=== PATIENT | female | born 1945 | race Caucasian/White ===

== ENCOUNTER 2019-04-06 20:48 | Inpatient (IN) | payer MEDICARE ==
[2019-04-06] MEDS ORDERED: FUROSEMIDE 10 MG/ML 4 ML VIAL IV STA (20:53)
[2019-04-06 21:33] LABS: Albumin 3.7 g/dL (3.5-5.0); Calcium 9.5 mg/dL (8.4-10.2); Magnesium 2.2 mg/dL (1.6-2.3); Total Bilirubin 0.6 mg/dL (0.2-1.3); Total Protein 6.4 g/dL (6.3-8.2)
[2019-04-06 21:34] LABS: INR 1.5 (<1.2); Partial Thromboplastin Time 29.1 sec (22.0-30.0); Prothrombin Time 15.1 sec (9.0-12.0)
[2019-04-06 21:38] LABS: Anisocytosis Slight; Basophils # (A) 0.4 k/uL (0-0.2); Basophils % (A) 3 %; Eosinophils # (A) 0.1 k/uL (0-0.7); Eosinophils % (A) 1 %; HCT 33.2 % (34.0-46.0); HGB 10.1 gm/dL (11.4-16.0); Hypochromasia Marked; Lymphocytes # (A) 0.2 k/uL (1.0-4.8); Lymphocytes % (A) 2 %; MCH 23.9 pg (25.0-35.0); MCHC 30.3 g/dL (31.0-37.0); MCV 78.9 fL (80.0-100.0); Mean Platelet Volume 7.1; Microcytosis Slight; Monocytes # (A) 0.7 k/uL (0-1.0); Monocytes % (A) 6 %; Neutrophils % (A) 87 %; Platelet Count 268 k/uL (150-450); RBC 4.21 m/uL (3.80-5.40); RDW 18.1 % (11.5-15.5); WBC 11.6 k/uL (3.8-10.6)
[2019-04-06 21:40] LABS: Potassium 4.9 mmol/L (3.5-5.1)
--- NOTE | 2019-04-06 22:01 | XR ---
EXAMINATION TYPE: XR chest 1V DATE OF EXAM: 04/06/2019 HISTORY: Shortness of breath. COMPARISON: 12/30/2018 TECHNIQUE: Single view of the chest is submitted. FINDINGS: Demonstrated are scattered senescent parenchymal change. Cardiomegaly with pulmonary venous congestion and small effusions as well as scattered areas of patch y infiltrate likely reflect congestive failure. Superimposed infiltrates of other etiology are diffic ult to exclude. Correlate clinically and progress studies are recommended. Hilar and mediastinal structures are within normal limits. Degenerative changes are seen of the dorsal spine. IMPRESSION: 1. Cardiomegaly with pulmonary venous congestion and small effusions as well as scattered areas of p atchy infiltrate likely reflect congestive failure. Superimposed infiltrates of other etiology are di fficult to exclude. Correlate clinically and progress studies are recommended.
--- NOTE | 2019-04-06 23:25 | ED ---
SOB HPI - General Chief Complaint: Shortness of Breath Stated Complaint: SOB Time Seen by Provider: 04/06/19 20:48 Source: patient, EMS, RN notes reviewed Mode of arrival: EMS - History of Present Illness Initial Comments: This is a 73-year-old female was brought in by EMS from [place] [facility] with complaints of shortness of breath that apparently started an hour or so prior to arrival however an x-ray was done earlier today and did show evidence of heart failure patient was given a breathing treatment with minimal responsiveness far she was hypoxemic per reports. No fevers chills nausea vomiting sweats no chest pain. Patient does have a history of CHF pneumonia obesity diabetes hypertensive heart disease chronic renal disease versus an atrial fibrillation MD Complaint: shortness of breath - Related Data Home Medications Medication Instructions Recorded Confirmed Albuterol Sulfate [Albuterol 2 puff PO RT-Q6H PRN 04/06/19 04/06/19 Sulfate Hfa] Atorvastatin [Lipitor] 10 mg PO HS 04/06/19 04/06/19 Bisacodyl 10 mg RECTAL DAILY PRN 04/06/19 04/06/19 Budesonide [Pulmicort] 0.5 mg INHALATION RT-BID 04/06/19 04/06/19 Ferrous Sulfate [Iron] 325 mg PO DAILY 04/06/19 04/06/19 Fluticasone Nasal [place] [Flonase 1 spray EA NOSTRIL DAILY 04/06/19 04/06/19 Nasal [place]] Furosemide [Lasix] 80 mg PO BID 04/06/19 04/06/19 Ipratropium-Albuterol Nebulize 3 ml INHALATION RT-Q6H PRN 04/06/19 04/06/19 [Duoneb 0.5 mg-3 mg/3 ml Soln] Isosorbide Mononitrate ER [Imdur] 30 mg PO DAILY 04/06/19 04/06/19 Loratadine 10 mg PO DAILY 04/06/19 04/06/19 Magnesium Hydroxide [Milk of 7,200 mg PO DAILY PRN 04/06/19 04/06/19 Magnesia Concentrate] Melatonin 1 mg PO HS 04/06/19 04/06/19 Metolazone [Zaroxolyn] 2.5 mg PO MOWEFR 04/06/19 04/06/19 Metoprolol Tartrate [Lopressor] 50 mg PO BID 04/06/19 04/06/19 Montelukast Sodium [Singulair] 10 mg PO HS 04/06/19 04/06/19 Na Phos,M-B/Na Phos,Di-Ba [Fleet 133 ml RECTAL ONCE PRN 04/06/19 04/06/19 Adult] Omeprazole 20 mg PO DAILY 04/06/19 04/06/19 Spironolactone 25 mg PO BID 04/06/19 04/06/19 Warfarin Sodium 2.5 mg PO DAILY 04/06/19 04/06/19 amLODIPine [Norvasc] 2.5 mg PO BID 04/06/19 04/06/19 glipiZIDE [Glucotrol] 10 mg PO BID 04/06/19 04/06/19 hydrALAZINE HCL 25 mg PO Q12H 04/06/19 04/06/19 Allergies Allergy/AdvReac Type Severity Reaction Status Date / Time No Known Allergies Allergy Verified 04/06/19 22:14 Review of Systems ROS Statement: Those systems with pertinent positive or pertinent negative responses have been documented in the HPI. ROS Other: All systems not noted in ROS Statement are negative. General Exam - General Exam Comments Initial Comments: This is a well-developed well-nourished awake alert oriented history female who is a respiratory distress with audible wheezing General appearance: alert, anxious, in distress Head exam: Present: atraumatic, normocephalic, normal inspection Eye exam: Present: normal appearance, PERRL, EOMI. Absent: scleral icterus, conjunctival injection, periorbital swelling ENT exam: Present: normal exam, mucous membranes moist Neck exam: Present: normal inspection, full ROM, other (No stridor JVD or bruits). Absent: tenderness, meningismus, lymphadenopathy Respiratory exam: Present: wheezes, decreased breath sounds. Absent: respiratory distress, rales, rhonchi, stridor Cardiovascular Exam: Present: irregular rhythm. Absent: systolic murmur, diastolic murmur, rubs, gallop, clicks GI/Abdominal exam: Present: soft, normal bowel sounds. Absent: distended, tenderness, guarding, rebound, rigid Extremities exam: Present: normal inspection, full ROM, normal capillary refill, pedal edema. Absent: tenderness, joint swelling, calf tenderness Back exam: Present: normal inspection Neurological exam: Present: alert, oriented X3, CN II-XII intact Psychiatric exam: Present: normal affect, anxious Skin exam: Present: warm, dry, intact, normal color. Absent: rash Course Vital Signs 04/06/19 04/06/19 04/06/19 20:50 21:00 21:30 Temperature 97.6 F Pulse Rate 93 99 87 Respiratory 22 18 17 Rate Blood Pressure 112/49 112/49 99/51 O2 Sat by Pulse 89 L 89 L 98 Oximetry 04/06/19 04/06/19 22:00 23:59 Temperature Pulse Rate 73 88 Respiratory 14 22 Rate Blood Pressure 96/43 104/50 O2 Sat by Pulse 98 89 L Oximetry - Reevaluation(s) Reevaluation #1: 04/07/19 00:23 The patient is no code per advanced directives Medical Decision Making - Lab Data Result diagrams: 04/06/19 21:05 04/06/19 21:05 Lab Results 04/06/19 04/06/19 04/06/19 Range/Units 21:05 21:05 21:05 WBC 11.6 H (3.8-10.6) k/uL RBC 4.21 (3.80-5.40) m/uL Hgb 10.1 L (11.4-16.0) gm/dL Hct 33.2 L (34.0-46.0) % MCV 78.9 L (80.0-100.0) fL MCH 23.9 L (25.0-35.0) pg MCHC 30.3 L (31.0-37.0) g/dL RDW 18.1 H (11.5-15.5) % Plt Count 268 (150-450) k/uL Neutrophils % 87 % Lymphocytes % 2 % Monocytes % 6 % Eosinophils % 1 % Basophils % 3 % Neutrophils # 10.0 H (1.3-7.7) k/uL Lymphocytes # 0.2 L (1.0-4.8) k/uL Monocytes # 0.7 (0-1.0) k/uL Eosinophils # 0.1 (0-0.7) k/uL Basophils # 0.4 H (0-0.2) k/uL Hypochromasia Marked Anisocytosis Slight Microcytosis Slight PT (9.0-12.0) sec INR (<1.2) APTT (22.0-30.0) sec Sodium 134 L (137-145) mmol/L Potassium 4.9 (3.5-5.1) mmol/L Chloride 95 L (98-107) mmol/L Carbon Dioxide 32 H (22-30) mmol/L Anion Gap 7 mmol/L BUN 43 H (7-17) mg/dL Creatinine 1.34 H (0.52-1.04) mg/dL Est GFR (CKD-EPI)AfAm 45 (>60 ml/min/1.73 sqM) Est GFR (CKD-EPI)NonAf 39 (>60 ml/min/1.73 sqM) Glucose 199 H (74-99) mg/dL Calcium 9.5 (8.4-10.2) mg/dL Magnesium 2.2 (1.6-2.3) mg/dL Total Bilirubin 0.6 (0.2-1.3) mg/dL AST 36 (14-36) U/L ALT 30 (9-52) U/L Alkaline Phosphatase 81 (38-126) U/L Creatine Kinase 28 L (30-135) U/L Troponin I (0.000-0.034) ng/mL NT-Pro-B Natriuret Pep 2510 pg/mL Total Protein 6.4 (6.3-8.2) g/dL Albumin 3.7 (3.5-5.0) g/dL 04/06/19 04/06/19 Range/Units 21:05 21:05 WBC (3.8-10.6) k/uL RBC (3.80-5.40) m/uL Hgb (11.4-16.0) gm/dL Hct (34.0-46.0) % MCV (80.0-100.0) fL MCH (25.0-35.0) pg MCHC (31.0-37.0) g/dL RDW (11.5-15.5) % Plt Count (150-450) k/uL Neutrophils % % Lymphocytes % % Monocytes % % Eosinophils % % Basophils % % Neutrophils # (1.3-7.7) k/uL Lymphocytes # (1.0-4.8) k/uL Monocytes # (0-1.0) k/uL Eosinophils # (0-0.7) k/uL Basophils # (0-0.2) k/uL Hypochromasia Anisocytosis Microcytosis PT 15.1 H (9.0-12.0) sec INR 1.5 H (<1.2) APTT 29.1 (22.0-30.0) sec Sodium (137-145) mmol/L Potassium (3.5-5.1) mmol/L Chloride (98-107) mmol/L Carbon Dioxide (22-30) mmol/L Anion Gap mmol/L BUN (7-17) mg/dL Creatinine (0.52-1.04) mg/dL Est GFR (CKD-EPI)AfAm (>60 ml/min/1.73 sqM) Est GFR (CKD-EPI)NonAf (>60 ml/min/1.73 sqM) Glucose (74-99) mg/dL Calcium (8.4-10.2) mg/dL Magnesium (1.6-2.3) mg/dL Total Bilirubin (0.2-1.3) mg/dL AST (14-36) U/L ALT (9-52) U/L Alkaline Phosphatase (38-126) U/L Creatine Kinase (30-135) U/L Troponin I 0.023 (0.000-0.034) ng/mL NT-Pro-B Natriuret Pep pg/mL Total Protein (6.3-8.2) g/dL Albumin (3.5-5.0) g/dL - EKG Data -: EKG Interpreted by Me (Atrial fibrillation with a variable AV block occasional PVCs rate was 90 QR) - Radiology Data Radiology results: report reviewed (I did review the imaging and report evidence of pulmonary edema/CHF), image reviewed Critical Care Time Critical Care Time: Yes Critical Care Time: 42 minutes of critical care time which includes initial presentation with history physical labs x-rays discussed with paramedics upon arrival. Review of old charting was available reevaluation the patient response to therapy discussion with the main physician admission orders and documentation of the above. Disposition Clinical Impression: Systolic congestive heart failure, Pulmonary edema, Hypoxemia, Renal insufficiency syndrome Disposition: ADMITTED IP TO THIS [facility] Condition: Serious Referrals: Miguel Angel Mcgrath MD [Primary Care Provider] - 1-2 days
[2019-04-07] MEDS ORDERED: BISACODYL 10 MG SUPP RECTAL PRN (00:26)
[2019-04-07] MEDS ORDERED: NA PHOS,M-B/NA PHOS,DI-BA 133 ML ENEMA RECTAL PRN (00:26)
[2019-04-07] MEDS ORDERED: MAGNESIUM HYDROXIDE 2,400 MG/10 ML CUP PO PRN (00:26)
--- NOTE | 2019-04-07 00:29 | ED ---
Medical Decision Making - Lab Data Result diagrams: 04/06/19 21:05 04/06/19 21:05 Lab Results 04/06/19 04/06/19 04/06/19 Range/Units 21:05 21:05 21:05 WBC 11.6 H (3.8-10.6) k/uL RBC 4.21 (3.80-5.40) m/uL Hgb 10.1 L (11.4-16.0) gm/dL Hct 33.2 L (34.0-46.0) % MCV 78.9 L (80.0-100.0) fL MCH 23.9 L (25.0-35.0) pg MCHC 30.3 L (31.0-37.0) g/dL RDW 18.1 H (11.5-15.5) % Plt Count 268 (150-450) k/uL Neutrophils % 87 % Lymphocytes % 2 % Monocytes % 6 % Eosinophils % 1 % Basophils % 3 % Neutrophils # 10.0 H (1.3-7.7) k/uL Lymphocytes # 0.2 L (1.0-4.8) k/uL Monocytes # 0.7 (0-1.0) k/uL Eosinophils # 0.1 (0-0.7) k/uL Basophils # 0.4 H (0-0.2) k/uL Hypochromasia Marked Anisocytosis Slight Microcytosis Slight PT (9.0-12.0) sec INR (<1.2) APTT (22.0-30.0) sec Sodium 134 L (137-145) mmol/L Potassium 4.9 (3.5-5.1) mmol/L Chloride 95 L (98-107) mmol/L Carbon Dioxide 32 H (22-30) mmol/L Anion Gap 7 mmol/L BUN 43 H (7-17) mg/dL Creatinine 1.34 H (0.52-1.04) mg/dL Est GFR (CKD-EPI)AfAm 45 (>60 ml/min/1.73 sqM) Est GFR (CKD-EPI)NonAf 39 (>60 ml/min/1.73 sqM) Glucose 199 H (74-99) mg/dL Calcium 9.5 (8.4-10.2) mg/dL Magnesium 2.2 (1.6-2.3) mg/dL Total Bilirubin 0.6 (0.2-1.3) mg/dL AST 36 (14-36) U/L ALT 30 (9-52) U/L Alkaline Phosphatase 81 (38-126) U/L Creatine Kinase 28 L (30-135) U/L Troponin I (0.000-0.034) ng/mL NT-Pro-B Natriuret Pep 2510 pg/mL Total Protein 6.4 (6.3-8.2) g/dL Albumin 3.7 (3.5-5.0) g/dL 04/06/19 04/06/19 Range/Units 21:05 21:05 WBC (3.8-10.6) k/uL RBC (3.80-5.40) m/uL Hgb (11.4-16.0) gm/dL Hct (34.0-46.0) % MCV (80.0-100.0) fL MCH (25.0-35.0) pg MCHC (31.0-37.0) g/dL RDW (11.5-15.5) % Plt Count (150-450) k/uL Neutrophils % % Lymphocytes % % Monocytes % % Eosinophils % % Basophils % % Neutrophils # (1.3-7.7) k/uL Lymphocytes # (1.0-4.8) k/uL Monocytes # (0-1.0) k/uL Eosinophils # (0-0.7) k/uL Basophils # (0-0.2) k/uL Hypochromasia Anisocytosis Microcytosis PT 15.1 H (9.0-12.0) sec INR 1.5 H (<1.2) APTT 29.1 (22.0-30.0) sec Sodium (137-145) mmol/L Potassium (3.5-5.1) mmol/L Chloride (98-107) mmol/L Carbon Dioxide (22-30) mmol/L Anion Gap mmol/L BUN (7-17) mg/dL Creatinine (0.52-1.04) mg/dL Est GFR (CKD-EPI)AfAm (>60 ml/min/1.73 sqM) Est GFR (CKD-EPI)NonAf (>60 ml/min/1.73 sqM) Glucose (74-99) mg/dL Calcium (8.4-10.2) mg/dL Magnesium (1.6-2.3) mg/dL Total Bilirubin (0.2-1.3) mg/dL AST (14-36) U/L ALT (9-52) U/L Alkaline Phosphatase (38-126) U/L Creatine Kinase (30-135) U/L Troponin I 0.023 (0.000-0.034) ng/mL NT-Pro-B Natriuret Pep pg/mL Total Protein (6.3-8.2) g/dL Albumin (3.5-5.0) g/dL Disposition Clinical Impression: Systolic congestive heart failure, Pulmonary edema, Hypoxemia, Renal insuf ficiency syndrome, Chronic atrial fibrillation Disposition: ADMITTED IP TO THIS HOSP Condition: Serious Referrals: Miguel Angel Mcgrath MD [Primary Care Provider] - 1-2 days
[2019-04-07] MEDS: hydrALAZINE HCL 25 MG TAB PO SCH ×3 (02:10→23:57)
[2019-04-07 06:20] LABS: Glucose,Whole Blood 191 mg/dL (75-99)
[2019-04-07] MEDS: PANTOPRAZOLE 40 MG TABLET PO SCH (06:23)
[2019-04-07] MEDS: INSULIN ASPART (NovoLOG) 100 UNIT/ML VIAL SQ SCH ×4 (06:24→21:42)
[2019-04-07] MEDS ORDERED: FUROSEMIDE 40 MG TAB PO SCH ×2 (08:00→21:00)
[2019-04-07] MEDS: LORATADINE 10 MG TAB PO SCH (08:04)
[2019-04-07] MEDS: FLUTICASONE 50MCG/SPRAY NASAL 16GM EA NOSTRIL SCH (08:04)
[2019-04-07] MEDS: SPIRONOLACTONE 25 MG TAB PO SCH ×2 (08:04→22:44)
[2019-04-07] MEDS: ISOSORBIDE MONONITRATE ER 30 MG TAB.ER.24H PO SCH (08:04)
[2019-04-07] MEDS: METOPROLOL TARTRATE 50 MG TAB PO SCH ×2 (08:04→22:44)
[2019-04-07] MEDS: FERROUS SULFATE 325 MG TAB PO SCH (08:05)
[2019-04-07] MEDS: glipiZIDE 10 MG TAB PO SCH ×2 (08:05→22:44)
[2019-04-07] MEDS: BUDESONIDE 0.5 MG/2 ML NEBU INHALATION SCH ×2 (08:19→19:53)
[2019-04-07] MEDS ORDERED: amLODIPine 5 MG TAB PO SCH (09:00)
[2019-04-07] MEDS ORDERED: FUROSEMIDE 20 MG TAB PO SCH (09:00)
[2019-04-07 11:36] VITALS: BMI 43.7
--- NOTE | 2019-04-07 11:42 | P.CRDCN ---
History of Present Illness Consult date: 04/07/19 Requesting physician: Yandel Adams Consult reason: congestive heart failure, shortness of breath Chief complaint: Shortness of breath History of present illness: This is a 73-year-old female who follows regularly with Dr. Stu Leonard in the office. She has a history of chronic atrial fibrillation, sick sinus syndrome with underlying permanent pacemaker, sleep apnea, who has in the past refused to wear CPAP, she has pulmonary hypertension history diastolic congestive heart failure, diabetes, hypertension, hyperlipidemia, was recently at [facility], treated there for heart failure according to the daughter, was released to [facility] on Saturday. Her breathing continued to worsen significantly and the patient developed profound worsening of her peripheral edema and for this reason came here to [facility] for evaluation and treatment. Chest x-ray on presentation here showed cardiomegaly with pulmonary venous congestion and small effusions as well as scattered areas of patchy infiltrate likely reflecting congestive heart failure. Superimposed infiltrates of other etiology difficult to exclude. EKG showed atrial fibrillation with occasional PVC. Blood pressure 150/60 with a heart rate in the 80s, 94% on a nonrebreather. White blood cell count 11.6, hemoglobin 10.1, platelet count 268. Sodium 134, potassium 4.9, BUN 43, creatinine 1.3, magnesium 2.2, troponin 0.023, 0.026, 0.025. BNP 2510. Past Medical History Past Medical History: Atrial Fibrillation, Asthma, Heart Failure, COPD, Diabetes Mellitus, Hyperlipidemia, Hypertension History of Any Multi-Drug Resistant Organisms: None Reported Past Surgical History: Pacemaker Past Anesthesia/Blood Transfusion Reactions: No Reported Reaction Type of Cardiac Device: Permanent Pacemaker Device Placement Date:: 2015 Past Psychological History: No Psychological Hx Reported Smoking Status: Never smoker Medications and Allergies Home Medications Medication Instructions Recorded Confirmed Type Albuterol Sulfate [Albuterol 2 puff PO RT-Q6H PRN 04/06/19 04/06/19 History Sulfate Hfa] Atorvastatin [Lipitor] 10 mg PO HS 04/06/19 04/06/19 History Bisacodyl 10 mg RECTAL DAILY PRN 04/06/19 04/06/19 History Budesonide [Pulmicort] 0.5 mg INHALATION RT-BID 04/06/19 04/06/19 History Ferrous Sulfate [Iron] 325 mg PO DAILY 04/06/19 04/06/19 History Fluticasone Nasal [place] [Flonase 1 spray EA NOSTRIL DAILY 04/06/19 04/06/19 History Nasal [place]] Furosemide [Lasix] 80 mg PO BID 04/06/19 04/06/19 History Ipratropium-Albuterol Nebulize 3 ml INHALATION RT-Q6H PRN 04/06/19 04/06/19 History [Duoneb 0.5 mg-3 mg/3 ml Soln] Isosorbide Mononitrate ER [Imdur] 30 mg PO DAILY 04/06/19 04/06/19 History Loratadine 10 mg PO DAILY 04/06/19 04/06/19 History Magnesium Hydroxide [Milk of 7,200 mg PO DAILY PRN 04/06/19 04/06/19 History Magnesia Concentrate] Melatonin 1 mg PO HS 04/06/19 04/06/19 History Metolazone [Zaroxolyn] 2.5 mg PO MOWEFR 04/06/19 04/06/19 History Metoprolol Tartrate [Lopressor] 50 mg PO BID 04/06/19 04/06/19 History Montelukast Sodium [Singulair] 10 mg PO HS 04/06/19 04/06/19 History Na Phos,M-B/Na Phos,Di-Ba [Fleet 133 ml RECTAL ONCE PRN 04/06/19 04/06/19 History Adult] Omeprazole 20 mg PO DAILY 04/06/19 04/06/19 History Spironolactone 25 mg PO BID 04/06/19 04/06/19 History Warfarin Sodium 2.5 mg PO DAILY 04/06/19 04/06/19 History amLODIPine [Norvasc] 2.5 mg PO BID 04/06/19 04/06/19 History glipiZIDE [Glucotrol] 10 mg PO BID 04/06/19 04/06/19 History hydrALAZINE HCL 25 mg PO Q12H 04/06/19 04/06/19 History Allergies Allergy/AdvReac Type Severity Reaction Status Date / Time No Known Allergies Allergy Verified 04/06/19 22:14 Physical Exam Vitals: Vital Signs Temp Pulse Pulse Resp BP BP Pulse Ox 04/07/19 08:29 92 04/07/19 08:21 88 96 04/07/19 07:48 95 F L 92 18 151/66 94 L 04/07/19 03:46 80 18 04/07/19 03:45 97.9 F 80 18 137/62 94 L 04/07/19 01:22 95 04/07/19 01:15 94 20 04/07/19 00:45 20 95 04/07/19 00:42 86 22 104/57 91 L 04/07/19 00:39 98.1 F 94 20 125/79 86 L 04/06/19 23:59 88 22 104/50 89 L 04/06/19 22:00 73 14 96/43 98 04/06/19 21:30 87 17 99/51 98 04/06/19 21:00 99 18 112/49 89 L 04/06/19 20:50 97.6 F 93 22 112/49 89 L Intake and Output 04/06/19 04/07/19 04/07/19 22:59 06:59 14:59 Intake Total 360 Output Total 200 1 Balance -200 359 Intake: Oral 360 Output: Urine 200 Stool 1 Other: Voiding Method Bedpan Incontinent # Voids 1 1 Weight 98.883 kg 101.5 kg PHYSICAL EXAMINATION: GENERAL: 73-year-old female in no acute distress at the time of my examination HEENT: Head is atraumatic, normocephalic. Pupils equal, round. Sclera anicteric. Conjunctiva are clear. Mucous membranes of the mouth are moist. Neck is supple. Unable to assess for elevated jugular venous pressure. No ca rotid bruit is heard. HEART EXAMINATION: Heart S1 and S2 irregularly irregular a systolic murmur is heard CHEST EXAMINATION: Lungs reveal rales bilaterally to the bases with diminished air in the bases ABDOMEN: Soft, obese, nontender. Bowel sounds are heard. No organomegaly noted. EXTREMITIES: 2+ peripheral pulses with 2-3+ evidence of peripheral edema and no calf tenderness noted. NEUROLOGIC [patient is sleepy, nonrebreather mask in place Results 04/06/19 21:05 04/06/19 21:05 Cardiac Enzymes 04/06/19 04/06/19 04/07/19 Range/Units 21:05 21:05 03:15 AST 36 (14-36) U/L Troponin I 0.023 0.026 (0.000-0.034) ng/mL 04/07/19 Range/Units 09:13 AST (14-36) U/L Troponin I 0.025 (0.000-0.034) ng/mL Coagulation 04/06/19 Range/Units 21:05 PT 15.1 H (9.0-12.0) sec APTT 29.1 (22.0-30.0) sec CBC 04/06/19 Range/Units 21:05 WBC 11.6 H (3.8-10.6) k/uL RBC 4.21 (3.80-5.40) m/uL Hgb 10.1 L (11.4-16.0) gm/dL Hct 33.2 L (34.0-46.0) % Plt Count 268 (150-450) k/uL Comprehensive Metabolic Panel 04/06/19 Range/Units 21:05 Sodium 134 L (137-145) mmol/L Potassium 4.9 (3.5-5.1) mmol/L Chloride 95 L (98-107) mmol/L Carbon Dioxide 32 H (22-30) mmol/L BUN 43 H (7-17) mg/dL Creatinine 1.34 H (0.52-1.04) mg/dL Glucose 199 H (74-99) mg/dL Calcium 9.5 (8.4-10.2) mg/dL AST 36 (14-36) U/L ALT 30 (9-52) U/L Alkaline Phosphatase 81 (38-126) U/L Total Protein 6.4 (6.3-8.2) g/dL Albumin 3.7 (3.5-5.0) g/dL Current Medications Generic Name Dose Route Start Last Admin Trade Name Freq PRN Reason Stop Dose Admin Amlodipine Besylate 2.5 mg 04/07/19 09:00 04/07/19 08:04 Norvasc PO 2.5 mg BID MING Administration Atorvastatin Calcium 10 mg 04/07/19 21:00 Lipitor PO HS MING Bisacodyl 10 mg 04/07/19 00:26 Dulcolax RECTAL DAILY PRN Constipation Budesonide 0.5 mg 04/07/19 08:00 04/07/19 08:19 Pulmicort INHALATION 0.5 mg RT-BID MING Administration Ferrous Sulfate 325 mg 04/07/19 09:00 04/07/19 08:05 Feosol PO 325 mg DAILY MNIG Administration Fluticasone Propionate 1 spray 04/07/19 09:00 04/07/19 08:04 Flonase Nasal [place] EA NOSTRIL 1 spray DAILY MING Administration Furosemide 40 mg 04/07/19 08:00 04/07/19 10:47 Lasix PO 40 mg Q8HR MING Administration Glipizide 10 mg 04/07/19 09:00 04/07/19 08:05 Glucotrol PO 10 mg BID [facility] Administration Hydralazine HCl 25 mg 04/07/19 00:30 04/07/19 02:10 Apresoline PO Not Given Q12H [facility] Insulin Aspart 0 unit 04/07/19 07:30 04/07/19 06:24 Novolog SQ 2 unit ACHS [facility] Administration Protocol Isosorbide Mononitrate 30 mg 04/07/19 09:00 04/07/19 08:04 Imdur PO 30 mg DAILY MING Administration Loratadine 10 mg 04/07/19 09:00 04/07/19 08:04 Claritin PO 10 mg DAILY [facility] Administration Magnesium Hydroxide 7,200 mg 04/07/19 00:26 Milk Of Magnesia PO DAILY PRN Constipation Melatonin 1 mg 04/07/19 21:00 Melatonin PO HS [facility] Metolazone 2.5 mg 04/08/19 09:00 Zaroxolyn PO MoWeFr@0900 [facility] Metoprolol Tartrate 50 mg 04/07/19 09:00 04/07/19 08:04 Lopressor PO 50 mg BID [facility] Administration Montelukast Sodium 10 mg 04/07/19 21:00 Singulair PO HS [facility] Pantoprazole Sodium 40 mg 04/07/19 07:30 04/07/19 06:23 Protonix PO 40 mg DAILY@0730 [facility] Administration Sodium Biphosphate/Sodium Phosphate 133 ml 04/07/19 00:26 Fleet Adult RECTAL 04/21/19 00:27 ONCE PRN Constipation Spironolactone 25 mg 04/07/19 09:00 04/07/19 08:04 Aldactone PO 25 mg BID [facility] Administration Warfarin Sodium 2.5 mg 04/07/19 18:00 Coumadin PO DAILY@1800 [facility] Intake and Output 04/06/19 04/07/19 04/07/19 22:59 06:59 14:59 Intake Total 360 Output Total 200 1 Balance -200 359 Intake: Oral 360 Output: Urine 200 Stool 1 Other: Voiding Method Bedpan Incontinent # Voids 1 1 Weight 98.883 kg 101.5 kg 04/06/19 21:05 04/06/19 21:05 EKG Interpretations (text) EKG shows atrial fibrillation with occasional PVC Assessment and Plan Plan: Assessment and plan #1 diastolic congestive heart failure acute on chronic #2 Sick sinus syndrome with prior pacemaker implantation #3 hypertension #4 hyperlipidemia #5 obesity #6 sleep apnea #7 pulmonary hypertension Plan The patient was released from [facility] on Saturday we will attempt to get an echo from there, as well as other records, if there was not one performed we will obtain an echo. We will also start the patient on an IV Lasix drip. We will discontinue the Norvasc and discontinue the hydralazine and nitrates. If the patient's renal function improves we will initiate an MIKHAIL inhibitor from tomorrow. Continue metoprolol, Lipitor, Aldactone. Monitor intake and output along with daily weights and daily lytes BUN and creatinine. DNP note has been reviewed, I agree with a documented findings and plan of care. Patient was seen and examined.
[2019-04-07 12:10] LABS: Glucose,Whole Blood 218 mg/dL (75-99)
[2019-04-07] MEDS: FUROSEMIDE 100 MG in SODIUM CHLORIDE 0.9% 90 ML IV SCH ×2 (13:27→20:21)
[2019-04-07 17:07] LABS: Glucose,Whole Blood 190 mg/dL (75-99)
[2019-04-07] MEDS: WARFARIN 2.5 MG TAB PO SCH (17:29)
[2019-04-07 17:50] LABS: Hemoglobin A1C 7.9 % (4.0-6.0)
[2019-04-07 20:21] LABS: Glucose,Whole Blood 215 mg/dL (75-99)
--- NOTE | 2019-04-07 21:16 | P.HPIM ---
History of Present Illness H&P Date: 04/07/19 Chief Complaint: Shortness of breath History of presenting complaint: This is a pleasant 73-year-old patient of visiting physician Dr. Mcgrath. Patient is currently in rehab at [facility]. Chronic stable medical conditions include hypertension, hyperlipidemia, diabetes, COPD, atrial fibrillation. Patient is of a permanent pacemaker. Patient's been short of breath for quite a while. For last 2 weeks becoming increasingly short of breath. Decreased appetite and increasing edema. Results of the ER. No fever no chills. Tired rundown. Patient is found to be in congestive heart failure is currently on a Lasix drip. Also on a BiPAP. Patient is niece of the bedside to give history. Patient normally uses a wheelchair to baseline. Patient's nephew Christian is the power of assistant attorney general. Patient was released from [facility] on Saturday. To the [facility] Review of systems: GEN.: Tired decreased appetite EYES: None HEENT: None NECK: None RESPIRATORY: As above CARDIOVASCULAR: [As above GASTROINTESTINAL: None GENITOURINARY: None MUSCULOSKELETAL: Joint pains LYMPHATICS: None HEMATOLOGICAL: None PSYCHIATRY: None NEUROLOGICAL: None Past medical history: Atypical fibrillation, heart failure, COPD, diabetes mellitus type 2, hyperlipidemia, hypertension, pacemaker Social history: No smoking. No alcohol. Currently at [facility]. Patient's nephew Christian is the [facility] er of assistant attorney general Family history: Reviewed, noncontributory to presentation Physical examination: VITAL SIGNS: 97.6, 93, 22, 11 2/49, 89% on 6 L-on presentation GENERAL: BMI 43.7, propped up in bed, short of breath BiPAP in place. EYES: Pupils equal. Conjunctiva normal. HEENT: External appearance of nose and ears normal, oral cavity grossly normal. NECK: JVD unable to assess; masses not palpable. HEART: Heart sounds are regular; edema present. LUNGS: Respiratory rate increased, diminished breath sounds. ABDOMEN: Soft, nontender, liver spleen not palpable, no masses palpable. PSYCH: Alert and oriented x3; mood and affect normal. NEUROLOGICAL: Cranial nerves grossly intact; no facial asymmetry, power and sensation grossly intact. LYMPHATICS: No lymph nodes palpable in the axilla and neck INVESTIGATIONS, reviewed in the clinical context: White count 11.6 hemoglobin 10.1 pressure 4.9 bun 43 creatinine 1.34 Troponin I 0.0-3, 0.026, 0.0-5 ProBNP 2510 EKG tracing personally reviewed by me--atrial flutter with variable AV block Chest x-ray film personally reviewed by me-cardiomegaly, with venous prominence and also infiltrates Assessment: -Acute on chronic congestive heart failure exacerbation EF not known -Possible pneumonia -Morbid obesity BMI 43.7 -Acute hypoxic respiratory failure from underlying pneumonia/CHF -Persistent atrial flutter with variable ventricular rate, on Coumadin -Chronic medical debility patient is wheelchair bound -Diabetes mellitus type 2 on oral hypoglycemic -Hyperlipidemia -Essential hypertension -Anemia possibly secondary to chronic kidney disease -Chronic kidney disease stage III possibly from diabetic nephropathy and hypertensive nephrosclerosis -Coumadin monitoring Plan: Patient put on oxygen supplementation. On Lasix drip. Strict I's and O's will be followed. Also on a BiPAP. We'll also start the patient on IV cefepime. Home medications resumed. 2-D echo results are being obtained from [facility]. Care was discussed with the patient and his of the bedside.- Past Medical History Past Medical History: Atrial Fibrillation, Asthma, Heart Failure, COPD, Diabetes Mellitus, Hyperlipidemia, Hypertension History of Any Multi-Drug Resistant Organisms: None Reported Past Surgical History: Pacemaker Past Anesthesia/Blood Transfusion Reactions: No Reported Reaction Type of Cardiac Device: Permanent Pacemaker Device Placement Date:: 2015 Past Psychological History: No Psychological Hx Reported Smoking Status: Never smoker Medications and Allergies Home Medications Medication Instructions Recorded Confirmed Type Albuterol Sulfate [Albuterol 2 puff PO RT-Q6H PRN 04/06/19 04/06/19 History Sulfate Hfa] Atorvastatin [Lipitor] 10 mg PO HS 04/06/19 04/06/19 History Bisacodyl 10 mg RECTAL DAILY PRN 04/06/19 04/06/19 History Budesonide [Pulmicort] 0.5 mg INHALATION RT-BID 04/06/19 04/06/19 History Ferrous Sulfate [Iron] 325 mg PO DAILY 04/06/19 04/06/19 History Fluticasone Nasal [place] [Flonase 1 spray EA NOSTRIL DAILY 04/06/19 04/06/19 History Nasal [place]] Furosemide [Lasix] 80 mg PO BID 04/06/19 04/06/19 History Ipratropium-Albuterol Nebulize 3 ml INHALATION RT-Q6H PRN 04/06/19 04/06/19 History [Duoneb 0.5 mg-3 mg/3 ml Soln] Isosorbide Mononitrate ER [Imdur] 30 mg PO DAILY 04/06/19 04/06/19 History Loratadine 10 mg PO DAILY 04/06/19 04/06/19 History Magnesium Hydroxide [Milk of 7,200 mg PO DAILY PRN 04/06/19 04/06/19 History Magnesia Concentrate] Melatonin 1 mg PO HS 04/06/19 04/06/19 History Metolazone [Zaroxolyn] 2.5 mg PO MOWEFR 04/06/19 04/06/19 History Metoprolol Tartrate [Lopressor] 50 mg PO BID 04/06/19 04/06/19 History Montelukast Sodium [Singulair] 10 mg PO HS 04/06/19 04/06/19 History Na Phos,M-B/Na Phos,Di-Ba [Fleet 133 ml RECTAL ONCE PRN 04/06/19 04/06/19 History Adult] Omeprazole 20 mg PO DAILY 04/06/19 04/06/19 History Spironolactone 25 mg PO BID 04/06/19 04/06/19 History Warfarin Sodium 2.5 mg PO DAILY 04/06/19 04/06/19 History amLODIPine [Norvasc] 2.5 mg PO BID 04/06/19 04/06/19 History glipiZIDE [Glucotrol] 10 mg PO BID 04/06/19 04/06/19 History hydrALAZINE HCL 25 mg PO Q12H 04/06/19 04/06/19 History Allergies Allergy/AdvReac Type Severity Reaction Status Date / Time No Known Allergies Allergy Verified 04/06/19 22:14 Physical Exam Vitals: Vital Signs Temp Pulse Pulse Resp BP BP Pulse Ox 04/07/19 12:00 97.5 F L 75 18 117/76 92 L 04/07/19 08:29 92 04/07/19 08:21 88 96 04/07/19 07:48 95 F L 92 18 151/66 94 L 04/07/19 03:46 80 18 04/07/19 03:45 97.9 F 80 18 137/62 94 L 04/07/19 01:22 95 04/07/19 01:15 94 20 04/07/19 00:45 20 95 04/07/19 00:42 86 22 104/57 91 L 04/07/19 00:39 98.1 F 94 20 125/79 86 L 04/06/19 23:59 88 22 104/50 89 L 04/06/19 22:00 73 14 96/43 98 04/06/19 21:30 87 17 99/51 98 04/06/19 21:00 99 18 112/49 89 L 04/06/19 20:50 97.6 F 93 22 112/49 89 L Intake and Output 04/06/19 04/07/19 04/07/19 22:59 06:59 14:59 Intake Total 360 Output Total 200 1 Balance -200 359 Intake: Oral 360 Output: Urine 200 Stool 1 Other: Voiding Method Bedpan Incontinent # Voids 1 1 Weight 98.883 kg 101.5 kg 101.5 kg Results CBC & Chem 7: 04/06/19 21:05 04/06/19 21:05 Labs: Abnormal Lab Results - Last 24 Hours (Table) 04/06/19 04/06/19 04/06/19 Range/Units 21:05 21:05 21:05 WBC 11.6 H (3.8-10.6) k/uL Hgb 10.1 L (11.4-16.0) gm/dL Hct 33.2 L (34.0-46.0) % MCV 78.9 L (80.0-100.0) fL MCH 23.9 L (25.0-35.0) pg MCHC 30.3 L (31.0-37.0) g/dL RDW 18.1 H (11.5-15.5) % Neutrophils # 10.0 H (1.3-7.7) k/uL Lymphocytes # 0.2 L (1.0-4.8) k/uL Basophils # 0.4 H (0-0.2) k/uL PT 15.1 H (9.0-12.0) sec INR 1.5 H (<1.2) Sodium 134 L (137-145) mmol/L Chloride 95 L (98-107) mmol/L Carbon Dioxide 32 H (22-30) mmol/L BUN 43 H (7-17) mg/dL Creatinine 1.34 H (0.52-1.04) mg/dL Glucose 199 H (74-99) mg/dL POC Glucose (mg/dL) (75-99) mg/dL Creatine Kinase 28 L (30-135) U/L 04/07/19 04/07/19 Range/Units 06:19 11:55 WBC (3.8-10.6) k/uL Hgb (11.4-16.0) gm/dL Hct (34.0-46.0) % MCV (80.0-100.0) fL MCH (25.0-35.0) pg MCHC (31.0-37.0) g/dL RDW (11.5-15.5) % Neutrophils # (1.3-7.7) k/uL Lymphocytes # (1.0-4.8) k/uL Basophils # (0-0.2) k/uL PT (9.0-12.0) sec INR (<1.2) Sodium (137-145) mmol/L Chloride (98-107) mmol/L Carbon Dioxide (22-30) mmol/L BUN (7-17) mg/dL Creatinine (0.52-1.04) mg/dL Glucose (74-99) mg/dL POC Glucose (mg/dL) 191 H 218 H (75-99) mg/dL Creatine Kinase (30-135) U/L Thrombosis Risk Factor Assmnt - Choose All That Apply Any of the Below Risk Factors Present?: Yes Each Factor Represents 1 point: Abnormal pulmonary function (COPD) Other Risk Factors: Yes Each Risk Factor Represents 2 Points: Age 61-74 years Other congenital or acquired thrombophilia - If yes, enter type in comment: No Thrombosis Risk Factor Assessment Total Risk Factor Score: 3 Thrombosis Risk Factor Assessment Level: Moderate Risk
[2019-04-07] MEDS: MONTELUKAST 10 MG TAB PO SCH (22:44)
[2019-04-07] MEDS: MELATONIN 1 MG TAB PO SCH (22:44)
[2019-04-07] MEDS: ATORVASTATIN 10 MG TAB PO SCH (22:44)
[2019-04-07] MEDS: CEFEPIME 2 GM in SODIUM CHLORIDE 0.9% 100 ML IVPB SCH (22:51)
[2019-04-08 06:22] LABS: Glucose,Whole Blood 166 mg/dL (75-99)
[2019-04-08] MEDS: FUROSEMIDE 100 MG in SODIUM CHLORIDE 0.9% 90 ML IV SCH ×2 (06:25→16:37)
[2019-04-08] MEDS: PANTOPRAZOLE 40 MG TABLET PO SCH (06:26)
[2019-04-08] MEDS: INSULIN ASPART (NovoLOG) 100 UNIT/ML VIAL SQ SCH ×4 (06:26→22:04)
[2019-04-08 06:51] LABS: Calcium 9.7 mg/dL (8.4-10.2); Potassium 4.6 mmol/L (3.5-5.1)
[2019-04-08 06:55] LABS: INR 1.7 (<1.2); Prothrombin Time 16.7 sec (9.0-12.0)
[2019-04-08] MEDS: METOPROLOL TARTRATE 50 MG TAB PO SCH ×2 (07:50→23:46)
[2019-04-08] MEDS: SPIRONOLACTONE 25 MG TAB PO SCH ×2 (07:50→22:04)
[2019-04-08] MEDS: LORATADINE 10 MG TAB PO SCH (07:50)
[2019-04-08] MEDS: glipiZIDE 10 MG TAB PO SCH ×2 (07:50→22:04)
[2019-04-08] MEDS: ISOSORBIDE MONONITRATE ER 30 MG TAB.ER.24H PO SCH (07:50)
[2019-04-08] MEDS: FERROUS SULFATE 325 MG TAB PO SCH (07:50)
[2019-04-08] MEDS: FLUTICASONE 50MCG/SPRAY NASAL 16GM EA NOSTRIL SCH (07:51)
[2019-04-08] MEDS: BUDESONIDE 0.5 MG/2 ML NEBU INHALATION SCH ×2 (08:43→20:26)
[2019-04-08] MEDS ORDERED: METOLAZONE 2.5 MG TAB PO SCH (09:00)
[2019-04-08 12:02] LABS: Glucose,Whole Blood 218 mg/dL (75-99)
[2019-04-08] MEDS: hydrALAZINE HCL 25 MG TAB PO SCH ×2 (12:54→23:46)
[2019-04-08] MEDS ORDERED: METOLAZONE 2.5 MG TAB PO STA (14:29)
--- NOTE | 2019-04-08 15:09 | CDI ---
Documentation Clarification Form Date: 04/08/2019 3:03:01 PM From: Anila VillarrealPeckSADE hitchcock, CCDS Admit Date: 04/07/2019 12:23:00 AM Patient Name: Jeanette Pratt Visit Number: [id number] Discharge Date: ATTENTION: The Clinical Documentation Specialists (CDI) and [facility] Coding Staff appreciate your assistance in clarifying documentation. Please respond to the clarification below the line at the bottom and electronically sign. The CDI & [facility] Coding staff will review the response and follow-up if needed. Please note: Queries are made part of the Legal Health Record. If you have any questions, please contact the author of this message via ITS. Dr. Yandel Adams: Per the History & Physical 04/07: "EKG tracing personally reviewed by me--atrial flutter with variable AV block Chest x-ray film personally reviewed by me- cardiomegaly, with venous prominence and also infiltrates." Per the cardiology consult: chronic atrial fibrillation. History/Risk factors: Atrial fibrillation, CHF, Hypertension, Hyperlipidemia, DM II, COPD & permanent pacemaker. Clinical Indicators: Presented with SOB, diagnosed with acute on chronic CHF exacerbation with EF not known, also possible pneumonia, morbid obesity, BMI >40, Acute hypoxic respiratory failure & "persistent atrial flutter". EKG: R 90 atrial flutter with AV block with occasional ventricular paced complexes. Treatment: IV Lasix, INH Pulmicort, po Apresoline, po Lasix, IV Cefepime, O2 6Lnc - 15% nrb - BiPAP. In your professional opinion, in order to capture the severity of condition; can you please clarify the type of Atrial Flutter if known? Typical/Type I Atypical/Type II Other, please specify Unable to determine (Last Revision: August 2017) Unable to determine MTDD
--- NOTE | 2019-04-08 15:36 | P.PN ---
Subjective Progress Note Date: 04/08/19 This is a 73-year-old female who follows regularly with Dr. Stu Leonard in the office. She has a history of chronic atrial fibrillation, sick sinus syndrome with underlying permanent pacemaker, sleep apnea, who has in the past refused to wear CPAP, she has pulmonary hypertension history diastolic congestive heart failure, diabetes, hypertension, hyperlipidemia, was recently at [facility], treated there for heart failure according to the daughter, was released to [facility] on Saturday. Her breathing continued to worsen significantly and the patient developed profound worsening of her peripheral edema and for this reason came here to [facility] for evaluation and treatment. Chest x-ray on presentation here showed cardiomegaly with pulmonary venous congestion and small effusions as well as scattered areas of patchy infiltrate likely reflecting congestive heart failure. Superimposed infiltrates of other etiology difficult to exclude. EKG showed atrial fibrillation with occasional PVC. Blood pressure 150/60 with a heart rate in the 80s, 94% on a nonrebreather. White blood cell count 11.6, hemoglobin 10.1, platelet count 268. Sodium 134, potassium 4.9, BUN 43, creatinine 1.3, magnesium 2.2, troponin 0.023, 0.026, 0.025. BNP 2510. Patient seen and examined this morning, continues to be quite short of breath. Urine output is minimal. His been instructed to put a Gordon catheter in excess accurate urine output. She continues to be on IV Lasix drip. Sodium 134, potassium 4.6, BUN 46 and creatinine 1.7. Repeat chest x-ray today. Consult ne phrology Objective - Vital Signs Vital signs: Vital Signs Temp 96 F L 04/08/19 11:27 Pulse 71 04/08/19 11:27 Resp 18 04/08/19 11:29 BP 130/59 04/08/19 11:27 Pulse Ox 97 04/08/19 11:27 Intake & Output 04/07/19 04/08/19 04/08/19 18:59 06:59 18:59 Intake Total 960 169 270 Output Total 1 251 70 Balance 959 -82 200 Weight 101.5 kg 101.2 kg Intake: IV 30 0.9 @ 5 30 Intake, IV Titration 169 Amount Furosemide 100 mg In 169 Sodium Chloride 0.9% 90 ml @ 10 MG/HR 10 mls/hr IV .Q10H MING Rx#: [id number] Oral 960 240 Output: Urine 250 70 Uretheral (Gordon) 20 Stool 1 1 Other: Voiding Method Bedside Commode Bedside Commode # Voids 4 1 - Exam PHYSICAL EXAMINATION: GENERAL: 73-year-old female in no acute distress at the time of my examination HEENT: Head is atraumatic, normocephalic. Pupils equal, round. Sclera anicteric. Conjunctiva are clear. Mucous membranes of the mouth are moist. Neck is supple. Unable to assess for elevated jugular venous pressure. No carotid bruit is heard. HEART EXAMINATION: Heart S1 and S2 irregularly irregular a systolic murmur is heard CHEST EXAMINATION: Lungs reveal rales bilaterally to the bases with diminished air in the bases ABDOMEN: Soft, obese, nontender. Bowel sounds are heard. No organomegaly noted. EXTREMITIES: 2+ peripheral pulses with 2-3+ evidence of peripheral edema and no calf tenderness noted. NEUROLOGIC [patient is sleepy, nonrebreather mask in place - Labs CBC & Chem 7: 04/06/19 21:05 04/08/19 06:07 Labs: Abnormal Lab Results - Last 24 Hours (Table) 04/07/19 04/07/19 04/07/19 Range/Units 09:13 09:13 17:01 PT (9.0-12.0) sec INR (<1.2) Sodium (137-145) mmol/L Chloride (98-107) mmol/L BUN (7-17) mg/dL Creatinine (0.52-1.04) mg/dL Glucose (74-99) mg/dL POC Glucose (mg/dL) 190 H (75-99) mg/dL Hemoglobin A1c 7.9 H (4.0-6.0) % Procalcitonin 0.20 H (0.02-0.09) ng/mL 04/07/19 04/08/19 04/08/19 Range/Units 20:19 06:07 06:11 PT 16.7 H (9.0-12.0) sec INR 1.7 H (<1.2) Sodium 134 L (137-145) mmol/L Chloride 95 L (98-107) mmol/L BUN 46 H (7-17) mg/dL Creatinine 1.72 H (0.52-1.04) mg/dL Glucose 160 H (74-99) mg/dL POC Glucose (mg/dL) 215 H (75-99) mg/dL Hemoglobin A1c (4.0-6.0) % Procalcitonin (0.02-0.09) ng/mL 04/08/19 04/08/19 Range/Units 06:21 12:01 PT (9.0-12.0) sec INR (<1.2) Sodium (137-145) mmol/L Chloride (98-107) mmol/L BUN (7-17) mg/dL Creatinine (0.52-1.04) mg/dL Glucose (74-99) mg/dL POC Glucose (mg/dL) 166 H 218 H (75-99) mg/dL Hemoglobin A1c (4.0-6.0) % Procalcitonin (0.02-0.09) ng/mL Microbiology - Last 24 Hours (Table) 04/06/19 21:15 Blood Culture - Preliminary Blood No Growth after 24 hours Assessment and Plan Plan: Assessment and plan #1 diastolic congestive heart failure acute on chronic #2 Sick sinus syndrome with prior pacemaker implantation #3 hypertension #4 hyperlipidemia #5 obesity #6 sleep apnea #7 pulmonary hypertension Plan The patient was released from [facility] on Saturday we and discontinue to await the results of the echo. We will also continue the patient on an IV Lasix drip. Consult nephrology repeat chest x-ray. Insert Gordon. DNP note has been reviewed, I agree with a documented findings and plan of care. Patient was seen and examined.
[2019-04-08] MEDS: IPRATROPIUM-ALBUTEROL 3 ML NEB INHALATION SCH ×2 (15:42→20:26)
[2019-04-08] MEDS ORDERED: DOBUTamine DRIP 500 MG in DEXTROSE/WATER 1 250ML.BAG IV SCH (17:15)
[2019-04-08 17:31] LABS: Glucose,Whole Blood 221 mg/dL (75-99)
[2019-04-08] MEDS: WARFARIN 2.5 MG TAB PO SCH (18:02)
[2019-04-08 20:31] LABS: Glucose,Whole Blood 202 mg/dL (75-99)
[2019-04-08 21:23] LABS: ABG HCO3 32 mmol/L (21-25); ABG Oxygen Saturation 82.3 % (94-97); ABG PCO2 65 mmHg (35-45); ABG PH 7.29 (7.35-7.45); ABG TCO2 34 mmol/L (19-24); Allen Test Performed? Yes
[2019-04-08 21:35] LABS: ABG PO2 49 mmHg (83-108)
--- NOTE | 2019-04-08 22:01 | P.PN ---
Progress Note - Text Progress Note Date: 04/08/19 Chief Complaint: Shortness of breath History of presenting complaint: This is a pleasant 73-year-old patient of visiting physician Dr. Mcgrath. Patient is currently in rehab at [facility]. Chronic stable medical conditions include hypertension, hyperlipidemia, diabetes, COPD, atrial fibrillation. Patient is of a permanent pacemaker. Patient's been short of breath for quite a while. For last 2 weeks becoming increasingly short of breath. Decreased appetite and increasing edema. Results of the ER. No fever no chills. Tired rundown. Patient is found to be in congestive heart failure is currently on a Lasix drip. Also on a BiPAP. Patient is niece of the bedside to give history. Patient normally uses a wheelchair to baseline. Patient's nephew Christian is the power of assistant city attorney. Patient was released from [facility] on Saturday. [facility] Admitted with CHF exacerbation and pneumonia. Put on cefepime and IV Lasix drip. Today-tired short of breath. Required BiPAP. Not much urine output. Straight catheter was done. Not much of urine output. Tired. Patient did about 25% for breakfast, no lunch, 100 percent of her supper Review of systems: Was done for constitutional, cardiovascular, GI, pulmonary. relevant finding as above Active Medications Albuterol/Ipratropium (Duoneb 0.5 Mg-3 Mg/3 Ml Soln) 3 ml INHALATION RT-QID [facility] Last Admin: 04/08/19 20:26 Dose: 3 ml Documented by: Atorvastatin Calcium (Lipitor) 10 mg PO HS [facility] Last Admin: 04/07/19 22:44 Dose: 10 mg Documented by: Bisacodyl (Dulcolax) 10 mg RECTAL DAILY PRN PRN Reason: Constipation Budesonide (Pulmicort) 0.5 mg INHALATION RT-BID [facility] Last Admin: 04/08/19 20:26 Dose: 0.5 mg Documented by: Ferrous Sulfate (Feosol) 325 mg PO DAILY [facility] Last Admin: 04/08/19 07:50 Dose: 325 mg Documented by: Fluticasone Propionate (Flonase Nasal [place]) 1 spray EA NOSTRIL DAILY [facility] Last Admin: 04/08/19 07:51 Dose: 1 spray Documented by: Glipizide (Glucotrol) 10 mg PO BID [facility] Last Admin: 04/08/19 07:50 Dose: 10 mg Documented by: Hydralazine HCl (Apresoline) 25 mg PO Q12H [facility] Last Admin: 04/08/19 12:54 Dose: 25 mg Documented by: Furosemide 100 mg/ Sodium (Chloride) 100 mls @ 10 mls/hr IV .Q10H [facility] Last Admin: 04/08/19 16:37 Dose: 10 mg/hr, 10 mls/hr Documented by: Cefepime HCl 2 gm/ Sodium (Chloride) 100 mls @ 200 mls/hr IVPB Q24H [facility] Last Admin: 04/07/19 22:51 Dose: 200 mls/hr Documented by: Dobutamine HCl/Dextrose 500 mg (/ IV Solution) 250 mls @ 7.59 mls/hr IV .Q24H [facility] Last Admin: 04/08/19 18:25 Dose: 2.5 mcg/kg/min, 7.59 mls/hr Documented by: Insulin Aspart (Novolog) 0 unit SQ [facility]; Protocol Last Admin: 04/08/19 18:03 Dose: 3 unit Documented by: Isosorbide Mononitrate (Imdur) 30 mg PO DAILY [facility] Last Admin: 04/08/19 07:50 Dose: 30 mg Documented by: Loratadine (Claritin) 10 mg PO DAILY [facility] Last Admin: 04/08/19 07:50 Dose: 10 mg Documented by: Magnesium Hydroxide (Milk Of Magnesia) 7,200 mg PO DAILY PRN PRN Reason: Constipation Melatonin (Melatonin) [address] [facility] Last Admin: 04/07/19 22:44 Dose: 1 mg Documented by: Metolazone (Zaroxolyn) 2.5 mg PO MoWeFr@0900 [facility] Last Admin: 04/08/19 07:50 Dose: 2.5 mg Documented by: Metoprolol Tartrate (Lopressor) 50 mg PO BID [facility] Last Admin: 04/08/19 07:50 Dose: 50 mg Documented by: Montelukast Sodium (Singulair) [address] [facility] Last Admin: 04/07/19 22:44 Dose: 10 mg Documented by: Pantoprazole Sodium (Protonix) 40 mg PO DAILY@0730 [facility] Last Admin: 04/08/19 06:26 Dose: 40 mg Documented by: Spironolactone (Aldactone) 25 mg PO BID [facility] Last Admin: 04/08/19 07:50 Dose: 25 mg Documented by: Warfarin Sodium (Coumadin) 2.5 mg PO DAILY@1800 [facility] Last Admin: 04/08/19 18:02 Dose: 2.5 mg Documented by: Physical examination: VITAL SIGNS: 96, 71, 18, 130/59, 97% on 15 L high flow GENERAL: BMI 43.7, propped up in bed, short of breath BiPAP in place. Tired EYES: Pupils equal. Conjunctiva normal. HEENT: External appearance of nose and ears normal, oral cavity grossly normal. NECK: JVD unable to assess; masses not palpable. HEART: Heart sounds are regular; significant edema present LUNGS: Respiratory rate increased, diminished breath sounds. But, bilateral basal crackles ABDOMEN: Soft, nontender, liver spleen not palpable, no masses palpable. PSYCH: Tired but able to answer questions INVESTIGATIONS, reviewed in the clinical context: Potassium 4.6 bun 46 crit 1.7 to Pro calcitonin 0.20 Previous testing White count 11.6 hemoglobin 10.1 pressure 4.9 bun 43 creatinine 1.34 Troponin I 0.0-3, 0.026, 0.0-5 ProBNP 2510 EKG tracing personally reviewed by me--atrial flutter with variable AV block Chest x-ray film personally reviewed by me-cardiomegaly, with venous prominence and also infiltrates Assessment: -Acute on chronic congestive heart failure exacerbation EF not known -Bilateral pneumonia -Morbid obesity BMI 43.7 -Acute hypoxic respiratory failure from underlying pneumonia/CHF, slow to respond -Persistent atrial flutter with variable ventricular rate, on Coumadin -Chronic medical debility patient is wheelchair bound -Diabetes mellitus type 2 on oral hypoglycemic -Hyperlipidemia -Essential hypertension -Anemia possibly secondary to chronic kidney disease -Chronic kidney disease stage III possibly from diabetic nephropathy and hypertensive nephrosclerosis -Coumadin monitoring Plan: -Patient is a Gordon catheter placed. Pulmonary consultation is being done. On a BiPAP with high flow oxygen. We'll also do a edwin wraps. Prognosis guarded.
[2019-04-08] MEDS: ATORVASTATIN 10 MG TAB PO SCH (22:04)
[2019-04-08] MEDS: MONTELUKAST 10 MG TAB PO SCH (22:04)
[2019-04-08] MEDS: CEFEPIME 2 GM in SODIUM CHLORIDE 0.9% 100 ML IVPB SCH (22:04)
[2019-04-08] MEDS: MELATONIN 1 MG TAB PO SCH (22:04)
[2019-04-08] MEDS ORDERED: LIDOCAINE 5% PATCH TOPICAL SCH (22:45)
[2019-04-09] MEDS ORDERED: LORazepam 2 MG/ML INJ IV PRN (01:31)
[2019-04-09] MEDS: FUROSEMIDE 100 MG in SODIUM CHLORIDE 0.9% 90 ML IV SCH (01:49)
[2019-04-09 06:11] LABS: Glucose,Whole Blood 199 mg/dL (75-99)
[2019-04-09] MEDS: PANTOPRAZOLE 40 MG TABLET PO SCH (06:13)
[2019-04-09] MEDS: INSULIN ASPART (NovoLOG) 100 UNIT/ML VIAL SQ SCH (06:22)
[2019-04-09 06:41] LABS: Anisocytosis Slight; HCT 31.9 % (34.0-46.0); HGB 9.5 gm/dL (11.4-16.0); Hypochromasia Marked; MCH 24.1 pg (25.0-35.0); MCHC 29.8 g/dL (31.0-37.0); MCV 80.7 fL (80.0-100.0); Mean Platelet Volume 6.9; Microcytosis Slight; Platelet Count 308 k/uL (150-450); RBC 3.95 m/uL (3.80-5.40); RDW 18.4 % (11.5-15.5); WBC 9.3 k/uL (3.8-10.6)
[2019-04-09 07:02] LABS: Calcium 9.6 mg/dL (8.4-10.2)
--- NOTE | 2019-04-09 07:14 | ECHOF ---
Referral Reason:chf MEASUREMENTS -------- HEIGHT: 152.4 cm WEIGHT: 101.2 kg BP: 130/59 RVIDd: 3.8 cm (< 3.3) IVSd: 1.0 cm (0.6 - 1.1) LVIDd: 5.1 cm (3.9 - 5.3) LVPWd: 1.2 cm (0.6 - 1.1) IVSs: 1.8 cm LVIDs: 3.6 cm LVPWs: 1.2 cm Ao Diam: 2.5 cm (2.0 - 3.7) AV Cusp: 1.8 cm (1.5 - 2.6) LA Diam: 4.5 cm (2.7 - 3.8) MV EXCURSION: 18.438 mm (> 18.000) MV EF SLOPE: 95 mm/s (70 - 150) EPSS: 0.8 cm RAP: 5.00 mmHg RVSP: 49.52 mmHg FINDINGS -------- Atrial fibrillation. This was a technically difficult study with suboptimal views. Pt. Very Sob Morbid Obesity The left ventricular size is normal. There is mild concentric left ventricular hypertrophy. Overa ll left ventricular systolic function is low-normal with, an EF between 50 - 55 %. Left ventricular fillimg pressure cannot be estimated due to Atrial fibrillation. The right ventricle is mild to moderately enlarged. The left atrium is mildly dilated. The right atrium was not well visualized. Lumason used Interatrial and interventricular septum intact. The aortic valve is trileaflet and appears structurally normal. There is moderate aortic valve scle rosis. There is no evidence of aortic regurgitation. There is no evidence of aortic stenosis. The mitral valve was not well visualized. There is trace mitral regurgitation. The tricuspid valve was not well visualized. Moderate tricuspid regurgitation present. There is m oderate pulmonary hypertension. The right ventricular systolic pressure, as measured by Doppler, is 49.52mmHg. The pulmonic valve was not well visualized. Trace/mild (physiologic) pulmonic regurgitation. The aortic root size is normal. IVC Not well visulized. There is no pericardial effusion. CONCLUSIONS -------- 1. Atrial fibrillation. 2. This was a technically difficult study with suboptimal views. 3. Pt. Very Sob 4. Morbid Obesity 5. The left ventricular size is normal. 6. There is mild concentric left ventricular hypertrophy. 7. Overall left ventricular systolic function is low-normal with, an EF between 50 - 55 %. 8. Left ventricular fillimg pressure cannot be estimated due to Atrial fibrillation. 9. The right ventricle is mild to moderately enlarged. 10. The left atrium is mildly dilated. 11. The right atrium was not well visualized. 12. Lumason used 13. Interatrial and interventricular septum intact. 14. The aortic valve is trileaflet and appears structurally normal. 15. There is moderate aortic valve sclerosis. 16. There is no evidence of aortic regurgitation. 17. There is no evidence of aortic stenosis. 18. The mitral valve was not well visualized. 19. There is trace mitral regurgitation. 20. The tricuspid valve was not well visualized. 21. Moderate tricuspid regurgitation present. 22. There is moderate pulmonary hypertension. 23. The right ventricular systolic pressure, as measured by Doppler, is 49.52mmHg. 24. The pulmonic valve was not well visualized. 25. Trace/mild (physiologic) pulmonic regurgitation. 26. The aortic root size is normal. 27. IVC Not well visulized. 28. There is no pericardial effusion. INVESTIGATION DIVISION SERGEANT: Laure Carbajal RDCS
[2019-04-09] MEDS: BUDESONIDE 0.5 MG/2 ML NEBU INHALATION SCH (08:36)
[2019-04-09] MEDS: IPRATROPIUM-ALBUTEROL 3 ML NEB INHALATION SCH ×2 (08:36→11:26)
[2019-04-09 09:41] VITALS: BP 114/61; PULSE 112; RESP 20; TEMP 97.5
--- NOTE | 2019-04-09 10:30 | P.NPCON ---
History of Present Illness - Reason for Consult acute renal failure - History of Present Illness reason for consultation: Acute kidney injury History of present illness: Patient is a 73-year-old female seen in renal consultation for acute kidney injury. Patient's creatinine on admission was 1.41 and is up at 2.5 today. She presented to the hospital with dyspnea. She is noted to have pulmonary edema. She was started on Lasix drip by cardiology with no significant urine output. Dobutamine was added last night. Urine output 400 mL overnight. Patient remains quite lethargic. Family present at bedside. Echocardiogram from this admission revealed preserved ejection fraction with moderate tricuspid regurgitation and pulmonary hypertension. She has a Gordon catheter in place. Hemodynamically she is stable. Remains quite edematous. afebrile. Vital signs are stable. General: The patient appeared well nourished and normally developed. HEENT: Head exam is unremarkable. Neck is without jugular venous distension. LUNGS: Breath sounds decreased. HEART: Rate and Rhythm are regular. First and second heart sounds normal. No murmurs, rubs or gallops. ABDOMEN: Abdominal exam reveals normal bowel sounds. Non-tender and non- distended. No evidence of peritonitis. EXTREMITITES: 1+edema. Past Medical History Past Medical History: Atrial Fibrillation, Asthma, Heart Failure, COPD, Diabetes Mellitus, Hyperlipidemia, Hypertension History of Any Multi-Drug Resistant Organisms: None Reported Past Surgical History: Pacemaker Past Anesthesia/Blood Transfusion Reactions: No Reported Reaction Type of Cardiac Device: Permanent Pacemaker Device Placement Date:: 2015 Past Psychological History: No Psychological Hx Reported Smoking Status: Never smoker Past Alcohol Use History: None Reported Past Drug Use History: None Reported - Past Family History Father History Unknown: Yes Mother History Unknown: Yes Medications and Allergies Home Medications Medication Instructions Recorded Confirmed Type Albuterol Sulfate [Albuterol 2 puff PO RT-Q6H PRN 04/06/19 04/06/19 History Sulfate Hfa] Atorvastatin [Lipitor] 10 mg PO HS 04/06/19 04/06/19 History Bisacodyl 10 mg RECTAL DAILY PRN 04/06/19 04/06/19 History Budesonide [Pulmicort] 0.5 mg INHALATION RT-BID 04/06/19 04/06/19 History Ferrous Sulfate [Iron] 325 mg PO DAILY 04/06/19 04/06/19 History Fluticasone Nasal [place] [Flonase 1 spray EA NOSTRIL DAILY 04/06/19 04/06/19 History Nasal [place]] Furosemide [Lasix] 80 mg PO BID 04/06/19 04/06/19 History Ipratropium-Albuterol Nebulize 3 ml INHALATION RT-Q6H PRN 04/06/19 04/06/19 History [Duoneb 0.5 mg-3 mg/3 ml Soln] Isosorbide Mononitrate ER [Imdur] 30 mg PO DAILY 04/06/19 04/06/19 History Loratadine 10 mg PO DAILY 04/06/19 04/06/19 History Magnesium Hydroxide [Milk of 7,200 mg PO DAILY PRN 04/06/19 04/06/19 History Magnesia Concentrate] Melatonin 1 mg PO HS 04/06/19 04/06/19 History Metolazone [Zaroxolyn] 2.5 mg PO MOWEFR 04/06/19 04/06/19 History Metoprolol Tartrate [Lopressor] 50 mg PO BID 04/06/19 04/06/19 History Montelukast Sodium [Singulair] 10 mg PO HS 04/06/19 04/06/19 History Na Phos,M-B/Na Phos,Di-Ba [Fleet 133 ml RECTAL ONCE PRN 04/06/19 04/06/19 History Adult] Omeprazole 20 mg PO DAILY 04/06/19 04/06/19 History Spironolactone 25 mg PO BID 04/06/19 04/06/19 History Warfarin Sodium 2.5 mg PO DAILY 04/06/19 04/06/19 History amLODIPine [Norvasc] 2.5 mg PO BID 04/06/19 04/06/19 History glipiZIDE [Glucotrol] 10 mg PO BID 04/06/19 04/06/19 History hydrALAZINE HCL 25 mg PO Q12H 04/06/19 04/06/19 History Allergies Allergy/AdvReac Type Severity Reaction Status Date / Time No Known Allergies Allergy Verified 04/06/19 22:14 Physical Exam Vitals: Vital Signs Temp Pulse Pulse Resp BP Pulse Ox 04/09/19 08:00 97.5 F L 112 H 20 114/61 81 L 04/09/19 06:26 86 24 04/09/19 03:09 86 24 04/09/19 03:08 98.8 F 86 24 127/60 90 L 04/09/19 00:50 92 L 04/09/19 00:41 85 L 04/09/19 00:00 97.2 F L 105 H 22 138/61 94 L 04/08/19 20:52 80 04/08/19 20:26 80 04/08/19 20:10 22 85 L 04/08/19 20:00 97.0 F L 105 H 22 114/36 73 L 04/08/19 16:50 76 18 138/67 91 L 04/08/19 15:50 68 04/08/19 15:42 68 91 L 04/08/19 11:29 18 04/08/19 11:27 96 F L 71 18 130/59 97 Intake and Output 04/08/19 04/09/19 04/09/19 22:59 06:59 14:59 Intake Total 460 272 0 Output Total 75 300 1 Balance 385 -28 -1 Intake: IV 180 0.9 @ 5 60 lasix 120 Intake, IV Titration 100 92 Amount Furosemide 100 mg In 100 92 Sodium Chloride 0.9% 90 ml @ 10 MG/HR 10 mls/hr IV .Q10H [facility] Rx#: [id number] Oral 360 0 Output: Urine 75 300 Stool 1 Other: Voiding Method Indwelling Catheter Indwelling Catheter Indwelling Catheter Weight 105.6 kg Results - Lab Results Most recent lab results ABG pH 7.29 (7.35-7.45) L 04/08/19 21:06 ABG pCO2 65 mmHg (35-45) H 04/08/19 21:06 ABG pO2 49 mmHg (83-108) L* 04/08/19 21:06 ABG HCO3 32 mmol/L (21-25) H 04/08/19 21:06 ABG O2 Saturation 82.3 % (94-97) L 04/08/19 21:06 Calcium 9.6 mg/dL (8.4-10.2) 04/09/19 05:48 Magnesium 2.2 mg/dL (1.6-2.3) 04/06/19 21:05 04/09/19 05:48 04/09/19 05:48 Assessment and Plan Plan: Assessment: 1. Acute kidney injury secondary to ATN secondary to cardiorenal syndrome. Creatinine 2.25 today. 2. Acute on chronic diastolic CHF with moderate tricuspid regurgitation and pulmonary hypertension. 3. Mixed hypercapnic and hypoxic respiratory failure secondary to volume overload. 4. Volume overload. Plan: Maintain dobutamine and Lasix drip for now. I discussed with the family at length that the next step to improve her volume status would be renal replacement therapy. According to the family the patient did not want to be on dialysis. They are requesting to meet with hospice and are considering comfort measures only. Thank you for the consultation. I will continue to follow the patient with you during her hospital stay.
[2019-04-09] MEDS ORDERED: HYDROmorphone 1 MG/ML 1 ML SYRINGE IVP PRN (11:21)
[2019-04-09] MEDS ORDERED: ACETAMINOPHEN SUPPOSITORY 650 MG SUPP RECTAL PRN (11:21)
[2019-04-09] MEDS ORDERED: ONDANSETRON 4 MG/2 ML VIAL IVP PRN (11:21)
[2019-04-09] MEDS ORDERED: ATROPINE OPHTH SOLN 1% 5ML BTL SUBLINGUAL PRN (11:21)
[2019-04-09] MEDS ORDERED: ARTIFICIAL TEARS-HYPROMELLOSE DROPS 15 ML BTL BOTH EYES PRN (11:21)
[2019-04-09] MEDS ORDERED: SCOPOLAMINE 1.5MG/72HR PATCH TRANSDERM SCH (11:30)
--- NOTE | 2019-04-09 13:10 | CONS ---
CONSULTATION PULMONARY/CRITICAL CARE CONSULTATION: DATE OF SERVICE: 04/09/2019 This is a 73-year-old female who was admitted back on April 06. She apparently presented to the emergency room with shortness of breath by EMS. She was apparently brought in from the retirement. She was admitted with a diagnosis of congestive heart failure. The patient was seen in the emergency room by Dr. Israel Nguyen. His impression was that she had systolic congestive heart failure, pulmonary edema, hypoxemia, and renal insufficiency. I was called last night because the patient was a DNR, was refusing BiPAP therapy. Blood gases were done which showed low PO2, an elevated pCO2 and acidosis. I recommended BiPAP. The patient absolutely refused. The nurses then asked me whether or not we could use AIRVO on the patient. The patient was placed on AIRVO, but as expected, it did not help. When I walked into the room this morning to see the patient, she was basically agonal in her respirations. Anyway, the family was at the bedside. We talked about the fact that she was a NO CODE and we thought that probably at this time the best thing was to go ahead and progress the patient to comfort measures which they agreed to. We stopped all active interventions. The patient was just placed on nasal O2. We were going to start the patient on some morphine. We were going to use Ativan for agitation. . HOME MEDICATIONS: On admission included albuterol, Lipitor, Bisacodyl, Pulmicort, iron, Flonase nasal spray, Lasix, DuoNeb, Imdur, loratadine, milk of magnesia, melatonin, Zaroxolyn, metoprolol, montelukast, Fleet enema, omeprazole, Aldactone, warfarin, amlodipine, glipizide, and Apresoline. ALLERGIES: Denied. MEDICAL HISTORY: Includes atrial fibrillation, asthma, CHF, COPD, diabetes, hyperlipidemia, and hypertension. SURGICAL HISTORY: Includes a previous pacemaker insertion in 2016. SOCIAL HISTORY: Negative tobacco or alcohol. No illicit drug use. FAMILY HISTORY: Negative. No significant family history. Apparently parents were stable. REVIEW OF SYSTEMS: Cannot be obtained from this patient. The patient was agonal in respirations and unresponsive. Vital signs are reviewed. Temperature 97.5, heart rate is about 24 breaths per minute. Heart rate about 112, beats per minute. Blood pressure 114/61 mean 78 saturations on the AIRVO at 60 L/minute and FiO2 of 95% orally 81%. She is unresponsive. She has some perioral cyanosis nose tip cyanosis and fingertip cyanosis. HEENT examination is grossly unremarkable. AIRVO cannula in place. NECK: Supple. Full range of motion. CARDIOVASCULAR examination reveals regular rhythm rate. Heart rate is 112. It is regular. S1, S2 normal. LUNGS: Reveal coarse rhonchi. There is crackles throughout. Breath sounds are equal bilaterally but diminished throughout. She is not taking deep inspirations. ABDOMEN: Obese. Bowel sounds are heard. EXTREMITIES are intact. There is some edema. No cyanosis, no clubbing. There is acrocyanosis. SKIN: Without rash. NEUROLOGIC: Examination could not be evaluated. The patient is in a comatose state. LAB DATA: Reviewed. White count 9.3, hemoglobin 9.5, hematocrit 31.9, platelet count 3008. Blood gases last night on and she show pO2 of only 49, pH 6, PO2 of only 49, pCO2 of 65 and a pH of 7.29. Gisela postop hypoxemia and acute on chronic hypercapnic respiratory failure. Sodium 136, potassium chloride 95, CO2 is 30, anion gap is 11, BUN and creatinine 52 and 2.35. N terminal proBNP 4110. Only chest x-ray that was done was ordered on admission, which showed findings consistent with congestive heart failure. There is cardiomegaly as well. Pneumonia could not be excluded. ASSESSMENT: 1. Impending respiratory failure secondary to congestive heart failure and possible pneumonia in a patient with systolic congestive heart failure. 2. Patient intolerant of BiPAP. 3. Acute on chronic hypercapnic respiratory failure. 4. Hypoxemic respiratory failure. 5. History of hyperlipidemia. 6. History of atrial fibrillation. 7. Asthma. 8. History of diabetes mellitus. 9. Status post pacemaker insertion. 10.Obesity. PLAN: The family was agreeable to comfort measures. We progressed her along to comfort measures. The AIRVO will be replaced by just a simple nasal cannula. The patient could be started on a morphine drip of 5 mg an hour. Ativan can be used at 1-2 mg IV for agitation. If oral secretions become a problem, a scopolamine patch can be used. Her prognosis is very poor and I suspect will probably be eminent. I explained all this to the family. They are in agreement. Actually, they are rather relieved. [email or web address] / IJN: [id number] /
--- NOTE | 2019-04-13 09:37 | CDI ---
Documentation Clarification Form Date: 04/13/19 From: Jillian Marin Phone: If you have a question about this query, please contact Margie Choi, Practice Or Student Teacher at [phone] between 8am and 5pm. Admit Date: 04/07/19 Discharge Date: 04/09/19 Patient Name: Jeanette Pratt Visit Number: [id number] ATTENTION: The Clinical Documentation Specialists (CDI) and [facility] Coding Staff appreciate your assistance in clarifying documentation. Please respond to the clarification below the line at the bottom and electronically sign. The CDI & [facility] Coding staff will review the response and follow-up if needed. Please note: Queries are made part of the Legal Health Record. If you have any questions, please contact the author of this message via ITS. Dear Dr. Yandel Pereyra, CHF is documented in the ED Note, H&P, H&P, consult and progress notes. Per Cardiology: Diastolic CHF acute on chronic. Per Dr Riley: Systolic CHF History/Risk Factors: HTN w CHF & CKD III, acute & chronic hypoxic & hypercapnia respiratory failure Clinical Indicators: Presents with SOB for quite a while. For the last 2 weeks becoming increasingly SOB. Decreased appetite and increasing edema. VS/Pulse OX: T-97.6, P-93,R- 22, BP-112/49, O2 sat-89 BNP: 2510 Echocardiogram Results: Left ventricular systolic function is low-normal with, an EF between 50 - 55 %. Chest X Ray: Cardiomegaly with pulmonary venous congestion and small effusions as well as scattered areas of patchy infiltrate likely reflect congestive failure.Superimposed infiltrates of other etiology are difficult to exclude. Treatment: IV Lasix 40 mg IV, IV Maxipime 2 gm 1. In your professional opinion, can you please clarify the acuity and type of CHF if known? TYPE Systolic Heart Failure Diastolic Heart Failure Systolic & Diastolic Heart Failure: ACUITY Acute Chronic Acute on Chronic Heart Failure Unable to Determine Other, please specify 2. Is this considered End-Stage CHF? Yes No Acute on chronic congestive heart failure from diastolic dysfunction EF 50% Not end-stage CHF MTDD
--- NOTE | 2019-04-13 16:25 | P.DS ---
Providers Date of admission: 04/07/19 00:23 Expected date of discharge: 04/09/19 (Patient ) Attending physician: Yandel Adams Consults: 04/07/19 00:23 Consult Physician Routine Consulting Provider: Jeff Moore Consult Reason/Comments: CHF Do you want consulting provider notified?: Yes 04/08/19 15:30 Consult Physician Urgent Consulting Provider: Tommy Jenkins Consult Reason/Comments: chf Do you want consulting provider notified?: Yes 04/08/19 20:39 Consult Physician Urgent Consulting Provider: Armando Riley Consult Reason/Comments: Pulmonary Edema, Dyspnea, Hypoxemia Do you want consulting provider notified?: Yes Primary care physician: Miguel Angel Mcgrath [facility] Course: Chief Complaint: Shortness of breath History of presenting complaint: This is a pleasant 73-year-old patient of visiting physician Dr. Mcgrath. Patient is currently in rehab at [facility]. Chronic stable medical conditions include hypertension, hyperlipidemia, diabetes, COPD, atrial fibrillation. Patient has permanent pacemaker. Patient's been short of breath for quite a while. For last 2 weeks becoming increasingly short of breath. Decreased appetite and increasing edema. Presented to ER. No fever no chills. Tired rundown. Patient is found to be in congestive heart failure, put on Lasix drip. Also on a BiPAP. Patient is niece of the bedside to give history. Patient normally uses a wheelchair to baseline. Patient's nephew Christian is the power of trade mark attorney. Patient was released from [facility] on Saturday. To the F Admitted with CHF exacerbation and pneumonia. Put on cefepime and IV Lasix drip. Today-family at spoke with Dr. Chavez from critical care. Decision made to proceed with comfort measures. On examination: Patient short of breath, tired INVESTIGATIONS, reviewed in the clinical context: Potassium 4.6 bun 46 crit 1.7 to Pro calcitonin 0.20 Previous testing White count 11.6 hemoglobin 10.1 pressure 4.9 bun 43 creatinine 1.34 Troponin I 0.0-3, 0.026, 0.0-5 ProBNP 2510 EKG tracing personally reviewed by me--atrial flutter with variable AV block Chest x-ray film personally reviewed by me-cardiomegaly, with venous prominence and also infiltrates Cause of : pneumonia Assessment: -Acute on chronic congestive heart failure exacerbation EF not known -Bilateral pneumonia -Morbid obesity BMI 43.7 -Acute hypoxic respiratory failure from underlying pneumonia/CHF, slow to respond -Persistent atrial flutter with variable ventricular rate, on Coumadin -Chronic medical debility patient is wheelchair bound -Diabetes mellitus type 2 on oral hypoglycemic -Hyperlipidemia -Essential hypertension -Anemia possibly secondary to chronic kidney disease -Chronic kidney disease stage III possibly from diabetic nephropathy and hypertensive nephrosclerosis -Coumadin monitoring Disposition: Patient Patient Condition at Discharge: Serious Plan - Discharge Summary Discharge Rx Participant: No New Discharge Prescriptions: No Action Montelukast Sodium [Singulair] 10 mg PO HS Metolazone [Zaroxolyn] 2.5 mg PO MOWEFR Magnesium Hydroxide [Milk of Magnesia Concentrate] 7,200 mg PO DAILY PRN PRN Reason: Constipation Furosemide [Lasix] 80 mg PO BID Ipratropium-Albuterol Nebulize [Duoneb 0.5 mg-3 mg/3 ml Soln] 3 ml INHALATION RT-Q6H PRN PRN Reason: Wheezing Na Phos,M-B/Na Phos,Di-Ba [Fleet Adult] 133 ml RECTAL ONCE PRN PRN Reason: Constipation Bisacodyl 10 mg RECTAL DAILY PRN PRN Reason: Constipation Albuterol Sulfate [Albuterol Sulfate Hfa] 2 puff PO RT-Q6H PRN PRN Reason: Wheezing Spironolactone 25 mg PO BID Warfarin Sodium 2.5 mg PO DAILY Budesonide [Pulmicort] 0.5 mg INHALATION RT-BID hydrALAZINE HCL 25 mg PO Q12H glipiZIDE [Glucotrol] 10 mg PO BID Metoprolol Tartrate [Lopressor] 50 mg PO BID amLODIPine [Norvasc] 2.5 mg PO BID Melatonin 1 mg PO HS Loratadine 10 mg PO DAILY Isosorbide Mononitrate ER [Imdur] 30 mg PO DAILY Fluticasone Nasal [place] [Flonase Nasal [place]] 1 spray EA NOSTRIL DAILY Ferrous Sulfate [Iron] 325 mg PO DAILY Atorvastatin [Lipitor] 10 mg PO HS Omeprazole 20 mg PO DAILY Discharge Medication List Albuterol Sulfate [Albuterol Sulfate Hfa] 2 puff PO RT-Q6H PRN 04/06/19 [History] Atorvastatin [Lipitor] 10 mg PO HS 04/06/19 [History] Bisacodyl 10 mg RECTAL DAILY PRN 04/06/19 [History] Budesonide [Pulmicort] 0.5 mg INHALATION RT-BID 04/06/19 [History] Ferrous Sulfate [Iron] 325 mg PO DAILY 04/06/19 [History] Fluticasone Nasal [place] [Flonase Nasal [place]] 1 spray EA NOSTRIL DAILY 04/06/19 [History] Furosemide [Lasix] 80 mg PO BID 04/06/19 [History] Ipratropium-Albuterol Nebulize [Duoneb 0.5 mg-3 mg/3 ml Soln] 3 ml INHALATION RT-Q6H PRN 04/06/19 [History] Isosorbide Mononitrate ER [Imdur] 30 mg PO DAILY 04/06/19 [History] Loratadine 10 mg PO DAILY 04/06/19 [History] Magnesium Hydroxide [Milk of Magnesia Concentrate] 7,200 mg PO DAILY PRN 04/06/19 [History] Melatonin 1 mg PO HS 04/06/19 [History] Metolazone [Zaroxolyn] 2.5 mg PO MOWEFR 04/06/19 [History] Metoprolol Tartrate [Lopressor] 50 mg PO BID 04/06/19 [History] Montelukast Sodium [Singulair] 10 mg PO HS 04/06/19 [History] Na Phos,M-B/Na Phos,Di-Ba [Fleet Adult] 133 ml RECTAL ONCE PRN 04/06/19 [History] Omeprazole 20 mg PO DAILY 04/06/19 [History] Spironolactone 25 mg PO BID 04/06/19 [History] Warfarin Sodium 2.5 mg PO DAILY 04/06/19 [History] amLODIPine [Norvasc] 2.5 mg PO BID 04/06/19 [History] glipiZIDE [Glucotrol] 10 mg PO BID 04/06/19 [History] hydrALAZINE HCL 25 mg PO Q12H 04/06/19 [History] Follow up Appointment(s)/Referral(s): Miguel Angel Mcgrath MD [Primary Care Provider] - 1-2 days Discharge Disposition: - Preliminary Cause of Preliminary Cause of : Pneumonia
== END 2019-04-09 17:57 | disposition expired | DRG 291 ==
LOC: EC 20:48 → 3SCARD 04-07 00:23
PROVIDERS: ADMIT Hospitalist; ATTEND Hospitalist
PROC: 5A09457 Assistance with Respiratory Ventilation, 24-96 Consecutive Hours, Continuous Positive Airway Pressure (ICD-10-PCS; principal; 2019-04-07)
DX: I13.0 Hypertensive heart and chronic kidney disease with heart failure and stage 1 through stage 4 chronic kidney disease, or unspecified chronic kidney disease (principal); J96.21 Acute and chronic respiratory failure with hypoxia; N17.0 Acute kidney failure with tubular necrosis; J96.22 Acute and chronic respiratory failure with hypercapnia; R40.2314 Coma scale, best motor response, none, 24 hours or more after hospital admission; R40.2114 Coma scale, eyes open, never, 24 hours or more after hospital admission; R40.2214 Coma scale, best verbal response, none, 24 hours or more after hospital admission; I50.33 Acute on chronic diastolic (congestive) heart failure; J18.9 Pneumonia, unspecified organism; Z68.42 Body mass index [BMI] 45.0-49.9, adult; I48.20 Chronic atrial fibrillation, unspecified; E87.2 Acidosis; I48.92 Unspecified atrial flutter; J44.0 Chronic obstructive pulmonary disease with (acute) lower respiratory infection; J44.1 Chronic obstructive pulmonary disease with (acute) exacerbation; Z66 Do not resuscitate; Z51.5 Encounter for palliative care; E11.22 Type 2 diabetes mellitus with diabetic chronic kidney disease; E66.01 Morbid (severe) obesity due to excess calories; I49.5 Sick sinus syndrome; I07.1 Rheumatic tricuspid insufficiency; I27.20 Pulmonary hypertension, unspecified; N18.3 Chronic kidney disease, stage 3 (moderate); D63.1 Anemia in chronic kidney disease; G47.30 Sleep apnea, unspecified; E78.5 Hyperlipidemia, unspecified; Z87.01 Personal history of pneumonia (recurrent); Z79.01 Long term (current) use of anticoagulants; Z79.84 Long term (current) use of oral hypoglycemic drugs; Z79.51 Long term (current) use of inhaled steroids; Z79.899 Other long term (current) drug therapy; Z71.3 Dietary counseling and surveillance; Z99.3 Dependence on wheelchair; Z95.0 Presence of cardiac pacemaker
CPT/HCPCS: 36415; 36600; 71045; 80048; 80053; 82550; 82805; 83036; 83735; 83880; 84145; 84484; 85025; 85027; 85610; 85730; 87040; 93005; 93306; 94640; 94660; 94760; 96374; 99291